=== PATIENT | female | born 1970 | race Caucasian/White ===

== ENCOUNTER 2023-06-07 14:23 | Outpatient (CLI) | payer BC | END 2023-06-07 14:24 | disposition home or self-care (01) | LOC: CSHMAMMO 14:23 | PROVIDERS: ATTEND Family Medicine | DX: Z12.31 Encounter for screening mammogram for malignant neoplasm of breast (principal) | CPT/HCPCS: 77063; 77067 ==

== ENCOUNTER 2025-11-11 14:47 | Outpatient (CLI) | payer BC | END 2025-11-11 14:48 | disposition home or self-care (01) | LOC: CSHMAMMO 14:47 | PROVIDERS: ATTEND Family Medicine | DX: Z12.31 Encounter for screening mammogram for malignant neoplasm of breast (principal) | CPT/HCPCS: 77063; 77067 ==